=== PATIENT | female | born 1995 | race Hispanic/Latino ===

== ENCOUNTER 2019-06-23 17:15 | Emergency (ER) | payer SELFPAY ==
[~2019-06-23] VITALS: Ht 157.5 cm; Wt 52.2 kg
[2019-06-23] MEDS ORDERED: SODIUM CHLORIDE 0.9% 1000ML 1,000 ML IV STA (17:36)
[2019-06-23] MEDS ORDERED: SODIUM CHLORIDE 0.9% 1000ML 1,000 ML ONE (17:45)
--- NOTE | 2019-06-23 18:19 | Diagnostic Imaging Report ---
Examination: CT head without contrast Clinical Indication: Syncope. Technique: Transaxial noncontrast images from the skull base through the vertex were obtained. Sagittal and coronal reformatted images were done. Dose modulation, iterative reconstruction, and/or weight based adjustment of the mA/kV was utilized to reduce the radiation dose to as low as reasonably achievable. Comparison: None. Findings: Scalp: No abnormalities. Bones: Intact. No fractures. No blastic or lytic lesions. Brain sulci: Appropriate for patient's age. Ventricles: Normal in size and configuration. No hydrocephalus. Extra-axial space: No abnormalities. Parenchyma: No abnormal densities. No masses, hemorrhage, or acute or chronic cortical based vascular insults. Suprasellar region: No abnormalities. Craniocervical junction: The foramen magnum is patent. No Chiari one malformation. Impression: No intracranial abnormality. Signed by: Dr. Bonnie Ojeda M.D. on 06/23/2019 6:16 PM
[2019-06-23] MEDS ORDERED: ONDANSETRON HCL INJ 2MG/ML 2ML 2 MG/ML VIAL IV ONE (18:30)
--- NOTE | 2019-06-23 18:52 | NUR ---
[facility] NOTIFIED OF NEED FOR TRANSFER, ETA 35/45 MINUTES
[2019-06-23 19:31] VITALS: BP 98/55
== END 2019-06-23 19:42 | disposition short-term general hospital (02) ==
LOC: FSED 17:15
DX: O26.92 Pregnancy related conditions, unspecified, second trimester (principal); S01.81XA Laceration without foreign body of other part of head, initial encounter; R55 Syncope and collapse; K52.9 Noninfective gastroenteritis and colitis, unspecified; E86.9 Volume depletion, unspecified; E86.1 Hypovolemia; W01.0XXA Fall on same level from slipping, tripping and stumbling without subsequent striking against object, initial encounter; Y93.E1 Activity, personal bathing and showering; Y92.002 Bathroom of unspecified non-institutional (private) residence as the place of occurrence of the external cause
CPT/HCPCS: 12011; 70450; 80053; 81003; 85025; 93005; 96374; 99284; J2405; J7030